=== PATIENT | male | born 1990 | race Two or more races ===

== ENCOUNTER 2017-12-28 12:00 | Emergency (ER) | payer OTHER ==
[2017-12-28 12:11] VITALS: BP 123/80; PULSE 59; TEMP 97.5; BMI 25.8
--- NOTE | 2017-12-28 13:04 | PDOC ---
Attending Attestation - HPI HPI: 12/29/17 20:48 PT presents to the ED complaining of chest pain. Patient is sleeping and is uncooperative with my history. - Physicial Exam PE: 12/29/17 20:50 Agree with resident exam. PAtient is sleeping but arousable to loud voice. Lungs are clear. Heart has regular rate and rhythm. - Medical Decision Making 12/29/17 20:52 Pt presents to the ED complaining of atypical chest pain. Differential includes muscular pain, ACS, less likely PE.
--- NOTE | 2017-12-28 13:37 | PDOC ---
History of Present Illness - General Chief Complaint: Chest Pain Stated Complaint: CHEST PAIN Time Seen by Provider: 12/28/17 13:03 - History of Present Illness Initial Comments: 12/28/17 15:46 The patient is a 27 year old male with a history of PE, cocaine, heroin abuse who presents for evaluation of chest pain. The patient reports a 1 day history of poorly described chest pain beginning today. He notes that he did use cocain and heroin 1 day ago as well. He reports similar symptoms in the past with cocaine use. He otherwise denies fevers, chills, SOB, nausea, vomiting, abdominal pain, or changes with urination or bowel movements. Past History - Past Medical History Allergies/Adverse Reactions: Allergies Allergy/AdvReac Type Severity Reaction Status Date / Time No Known Allergies Allergy Verified 12/28/17 12:06 Home Medications: Ambulatory Orders Ibuprofen [Motrin -] 800 mg PO Q6H PRN #10 tablet 06/25/16 Cardiac Disorders: Yes (PE) COPD: No DVT: No Dementia: No Psychiatric Problems: No (drug abuse, coccain, heroin) - Immunization History Immunization Up to Date: Yes - Suicide/Smoking/Psychosocial Hx Smoking History: Never smoked Have you smoked in the past 12 months: No Information on smoking cessation initiated: No Hx Alcohol Use: No Drug/Substance Use Hx: Yes (coccaine,herion) Substance Use Type: Cocaine, Heroin Review of Systems - Review of Systems Comments:: 12/28/17 15:48 Constitutional: No fevers, chills, fatigue, malaise HEENT: No Rhinorrhea, nasal congestion, visual changes Cardiovascular: Chest pain. No syncope, palpitations, lightheadedness Respiratory: No Cough, SOB, Hemoptysis, Gastrointestinal: No Abdominal pain, Nausea, Vomiting, Constipation, Diarrhea, Melena Genitourinary: No Dysuria, Frequency, Urgency, Hesitancy, Hematuria, Flank pain Musculoskeletal: No Myalgia, arthralgia Skin: No rashes, itching, bruising, pallor Neurologic: No Headache, Dizziness, Numbness, Weakness, or Tingling Psychiatric: No Hallucinations. No SI or HI *Physical Exam - Vital Signs Last Vital Signs Temp Pulse Resp BP Pulse Ox 97.5 F L 59 L 16 123/80 100 12/28/17 12:07 12/28/17 12:07 12/28/17 12:07 12/28/17 12:07 12/28/17 12:07 - Physical Exam Comments: 12/28/17 15:49 General Appearance: Nourished. Sleepy on exam. No Apparent Distress HEENT: EOMI, CAMELIA. No Pharyngeal Erythema, Tonsillar Exudate, Tonsillar Erythema Neck: No Cervical Lymphadenopathy Respiratory/Chest: Lungs Clear, Normal Breath Sounds. No Crackles, Rales, Rhonchi, Wheezing Cardiovascular: Regular Rhythm, Regular Rate. No Murmur, Gallops, Rubs Gastrointestinal/Abdominal: Normal Bowel Sounds, Soft. No Guarding, Rebound, Tenderness Musculoskeletal: No CVA Tenderness Extremity: Normal Capillary Refill Integumentary: Normal Color, Dry, Warm Neurologic: Fully Oriented, Alert, Normal Mood/Affect, Normal Response, Heart Score/ECG Review #1 ECG reviewed & interpreted by me at: 15:49 General ECG Interpretation: Sinus Rhythm, Normal Rate, Normal Intervals, No acute ischemic changes ED Treatment Course - LABORATORY CBC & Chemistry Diagram: 12/28/17 13:30 12/28/17 13:30 - RADIOLOGY Radiology Studies Ordered: Category Date Time Status CHEST PA & LAT [RAD] Stat Radiology 12/28/17 13:15 Ordered Medical Decision Making - Medical Decision Making 12/28/17 15:49 The patient is a 27 year old male with a history of PE, cocaine, heroin abuse who presents for evaluation of chest pain. Differential includes but is not limited to: ACS, Arrhythmia, PE, Pneumonia, Infectious, metabolic derangement. Given the patient's history we will obtain a cbc, cmp, troponin, d-dimer, ekg, and chest plain film to evaluate further for possible etiologies. We will continue to monitor and reassess while here in the ED. 12/28/17 18:11 CBC, cmp, troponin, d-dimer are unremarkable. Chest plain film are unremarkable as read by our radiologist. We are comfortable discharging the patient home with primary care provider follow up. We discussed the results, plan, and return precautions with the patient who voiced understanding and is agreeable with the plan. *DC/Admit/Observation/Transfer Diagnosis at time of Disposition: Chest pain Qualifiers: Chest pain type: unspecified Qualified Code(s): R07.9 - Chest pain, unspecified - Discharge Dispostion Disposition: HOME Condition at time of disposition: Stable Decision to Admit order: No - Referrals Referrals: Mark Dotson MD [Staff Physician] - - Patient Instructions Printed Discharge Instructions: DI for Atypical Chest Pain Additional Instructions: Please return to the ER if you experience concerning or worsening symptoms including worsening chest pain, SOB, or difficulty breathing. Your lab results and x-rays were normal here in the ER. It is important that you call to schedule a follow up appointment with your primary care provider and commercial account manager to discuss your ER visit and further management of your symptoms. - Post Discharge Activity
[2017-12-28 14:10] LABS: BASO % 0.8 % (0-2.0); EOS % 26.2 % (0-4.5); HEMATOCRIT 41.4 % (35.4-49); HEMOGLOBIN 13.2 GM/dL (11.7-16.9); LYMPH % 14.4 % (8-40); MCH 27.7 pg (25.7-33.7); MCHC 31.9 g/dl (32.0-35.9); MEAN PLT VOLUME 8.6 fl (7.5-11.1); MONO % 11.6 % (3.8-10.2); PLATELET COUNT 206 K/MM3 (134-434); RBC 4.76 M/mm3 (4.00-5.60); RDW 18.5 % (11.9-15.9); WHITE BLOOD COUNT 5.3 K/mm3 (4.0-10.0)
[2017-12-28 14:35] LABS: ALBUMIN 3.4 g/dl (3.4-5.0); ANION GAP 7 (8-16); BLOOD UREA NITROGEN 9 mg/dL (7-18); CALCIUM 8.7 mg/dL (8.5-10.1); CHLORIDE 105 mmol/L (98-107); CO2 26 mmol/L (21-32); CREATININE 0.7 mg/dL (0.7-1.3); GLUCOSE,RANDOM 102 mg/dL (74-106); POTASSIUM 3.8 mmol/L (3.5-5.1); SGOT/AST 30 U/L (15-37); SGPT/ALT 35 U/L (12-78); SODIUM 138 mmol/L (136-145)
[2017-12-28 14:40] LABS: ALK PHOS 84 U/L (45-117); BILIRUBIN,TOTAL 0.6 mg/dL (0.2-1.0); TOT PROT 6.8 g/dl (6.4-8.2)
[2017-12-28 15:37] LABS: ACANTHOCYTES 0; ANISOCYTOSIS 0; HELMET CELLS 0; HOWELL-JOLLY BODIES 0; MACROCYTOSIS 0; OVALOCYTE 0; PLATELET ESTIMATE NORMAL; ROULEAU 0; SICKELED CELLS 0; TARGET CELLS 0; TEAR DROP CELLS 0; TOXIC GRANULATION 0
--- NOTE | 2017-12-28 16:10 | EKG ---
Test Reason : Blood Pressure : / mmHG Vent. Rate : 055 BPM Atrial Rate : 055 BPM P-R Int : 138 ms QRS Dur : 082 ms QT Int : 408 ms P-R-T Axes : 074 092 056 degrees QTc Int : 390 ms SINUS BRADYCARDIA RIGHTWARD AXIS NONSPECIFIC ST ABNORMALITY ABNORMAL ECG WHEN COMPARED WITH ECG OF 25-JUN-2016 00:49, NO SIGNIFICANT CHANGE WAS FOUND Confirmed by LEONCIO OJEDA MD ([id number]) on 12/28/2017 4:09:57 PM Referred By: Confirmed By:LEONCIO OJEDA MD
== END 2017-12-28 16:33 | disposition home or self-care (01) ==
LOC: JER 12:00
DX: R07.89 Other chest pain (principal); F11.10 Opioid abuse, uncomplicated; F14.10 Cocaine abuse, uncomplicated; Z86.711 Personal history of pulmonary embolism
CPT/HCPCS: 36415; 71046-TC-FY; 80053; 82550; 84484; 85025; 85379; 93005; 93010; 99283-25